=== PATIENT | female | born 1950 | race Caucasian/White ===

== ENCOUNTER → 2017-11-26 | Outpatient (CLI) | payer MEDICARE, OTHER ==
--- NOTE | 2017-11-26 15:58 | Diagnostic Imaging Report ---
EXAM: Bone mineral density study 11/26/2017 1:54 PM INDICATION: \S\MENOPAUSE/LONG TERN USE STEROIDS COMPARISON: Baseline DEXA 07/28/2014 FINDINGS: Evaluation of the left hip and lumbar spine was performed. The study is technically adequate. The patient's fracture risk is compared to an age-matched control. The left femoral neck total bone mineral density is 0.614 gm/cm2, the T-score is -2.1 and the total Z-score is -0.4. The total left hip bone mineral density is 0.718 gm/cm2, the T-score is -1.8 and the total Z-score is -0.5. The total left hip BMD change versus baseline is -7.5%. The lumbar spine total bone mineral density is 0.915 gm/cm2, the T-score is -1.2, and the Z-score is 0.8. The lumbar spine BMD change versus baseline is 0.8%. IMPRESSION: Bone mineralization by WHO Classification is osteopenia, the fracture risk is increased. Signed by: Dr. Isreal Ellis MD on 11/26/2017 3:54 PM
== END ==
LOC: MAMMO 13:38
PROVIDERS: ATTEND Family Medicine
DX: Z12.31 Encounter for screening mammogram for malignant neoplasm of breast (principal); Z13.820 Encounter for screening for osteoporosis; Z78.0 Asymptomatic menopausal state; Z72.0 Tobacco use
CPT/HCPCS: 77067; 77080

== ENCOUNTER → 2017-12-19 | Outpatient (CLI) | payer MEDICARE, OTHER ==
--- NOTE | 2017-12-19 15:41 | Diagnostic Imaging Report ---
#[id number] - MGDXLT #UNILATERAL LEFT DIGITAL DIAGNOSTIC MAMMOGRAM WITH SPOT COMPRESSION AND MAGNIFICATION: 12/19/2017 Comparison is made to exams dated: 11/26/2017 mammogram and 10/17/2016 mammogram - [facility]. Current study contains 3 films. The tissue of the left breast is heterogeneously dense. This may lower the sensitivity of mammography. The calcification in question identified on recent prior study appears to represent benign vascular calcification. IMPRESSION: BENIGN There is no mammographic evidence of malignancy. A 1 year screening mammogram is recommended. The patient will be notified by letter of the results. Abhi Melgar Jr., D.O. cw/:12/19/2017 14:19:43 Caterer Helper: Ting MONTALVO)(M), [facility] letter sent: Normal Exam Mammogram BI-RADS: 2 Benign
== END ==
LOC: MAMMO 12:32
PROVIDERS: ATTEND Family Medicine
DX: N64.59 Other signs and symptoms in breast (principal)

== ENCOUNTER → 2018-02-18 | Outpatient (CLI) | payer MEDICARE, OTHER ==
[~2018-02-18] MED LIST: IOPAMIDOL 370 MG/ML 200 ML INFUS..BTL INJ ONE; SODIUM CHLORIDE 0.9% 250ML 250 ML ONE
[2018-02-18 15:08] LABS: BLOOD UREA NITROGEN 10 mg/dL (7-26); BUN/CREATININE RATIO 14 (6-25); CREATININE, SERUM 0.69 mg/dL (0.57-1.11); EST GLOMERULAR FILTRATION RATE > 60 ML/MIN (60-)
--- NOTE | 2018-02-18 17:03 | Diagnostic Imaging Report ---
EXAMINATION: CT of the abdomen and pelvis with contrast. TECHNIQUE: Spiral CT images of the abdomen and pelvis were performed from the lung bases to the lesser trochanters before and after the intravenous administration of 150 cc of Isovue-370 and the oral administration of water. Coronal and sagittal reformatted images were obtained. CT urogram protocol was performed. COMPARISON: None. CLINICAL HISTORY:Gross hematuria DISCUSSION: ABDOMEN/PELVIS: LOWER THORAX:Unremarkable. HEPATOBILIARY: No focal hepatic lesions. No intra-or extrahepatic biliary ductal dilation. The gallbladder is normal. SPLEEN: No splenomegaly. PANCREAS: No focal masses or ductal dilatation. ADRENALS: No adrenal nodules. KIDNEYS/URETERS: Precontrast images show no renal, ureteral, or bladder calculi. Urographic phase images show subcentimeter hypoattenuating lesions within both kidneys, too small to further characterize though likely to represent small cysts. No solid renal mass lesions. The ureters are fully visualized and opacified with contrast material, without intraluminal filling defect. PELVIC ORGANS/BLADDER: Within the left posterior urinary bladder there is a polypoid lesion measuring 2.8 cm protruding into the bladder lumen, as seen on series 6 image 134. The lesion appears to arise from the bladder wall along its superior margin as seen on coronal image 66. The lesion measures approximately 30 Hounsfield units on precontrast images and approximately 75 Hounsfield units on urographic phase imaging. The uterus is anteflexed and appears normal. No adnexal mass. PERITONEUM/RETROPERITONEUM: No ascites. No pneumoperitoneum. LYMPH NODES: No pelvic sidewall, retroperitoneal, or mesenteric lymphadenopathy. VESSELS: Limited evaluation due to phase of scan. Atherosclerotic calcification of the abdominal aorta and iliac arterial systems without aneurysmal dilatation. Dilatation of the presacral venous plexus which may relate to left common iliac venous compression by the right common iliac artery, seen on series 6 image 84. GI TRACT: There are diverticula scattered along the sigmoid colon without wall thickening or inflammatory change. The appendix is not identified and has presumably been removed. No small bowel dilatation to suggest obstruction. BONES AND SOFT TISSUE: No osseous destructive lesions. Multilevel degenerative disc changes and facet arthropathy of the lumbar spine. No focal soft tissue abnormalities. 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 Direct visualization with cystoscopy is suggested. No CT findings to suggest regional or distant metastases within the abdomen or pelvis. No filling defects in the upper collecting systems to suggest presence of synchronous neoplasm. Large bowel diverticulosis without evidence of diverticulitis. Incidental note of dilatation of the presacral venous plexus, which may be a consequence of left common iliac venous compression (May Thurner syndrome) in the correct clinical setting. Atherosclerotic vascular disease. Signed by: Dr. Hakeem Waddell M.D. on 02/18/2018 5:00 PM
== END ==
LOC: CT 14:06
PROVIDERS: ATTEND Urology
DX: R31.0 Gross hematuria (principal)
CPT/HCPCS: 36415; 74178; 82565; 84520; J7050; Q9967

== ENCOUNTER → 2019-02-03 | Outpatient (CLI) | payer MEDICARE, OTHER ==
--- NOTE | 2019-02-05 08:43 | Diagnostic Imaging Report ---
#[id number] - MGSCRBIL #BILATERAL DIGITAL SCREENING MAMMOGRAM WITH CAD: 02/03/2019 CLINICAL: Routine screening. Comparison is made to exams dated: 12/19/2017 mammogram, 11/26/2017 mammogram, 10/17/2016 mammogram and 09/15/2015 mammogram - [facility]. Current study contains 5 films. There are scattered fibroglandular elements in both breasts. Current study was also evaluated with a Computer Aided Detection (CAD) system. Benign appearing calcifications are noted bilaterally. There are benign vascular calcifications in both breasts. No significant masses, calcifications, or other findings are seen in either breast. IMPRESSION: BENIGN There is no mammographic evidence of malignancy. A 1 year screening mammogram is recommended. The patient will be notified by letter of the results. KAYCEE FOSTER M.D. ct/penrad:02/04/2019 16:45:54 Breaker Unit Assembler: Ting SCHERER(Vaughn)(To), [facility] letter sent: Normal Exam Mammogram BI-RADS: 2 Benign
== END ==
LOC: MAMMO 14:05
PROVIDERS: ATTEND Family Medicine
DX: Z12.31 Encounter for screening mammogram for malignant neoplasm of breast (principal)
CPT/HCPCS: 77067

== ENCOUNTER → 2020-11-17 | Outpatient (CLI) | payer MEDICARE | LOC: MAMMO 14:03 | PROVIDERS: ATTEND Family Medicine | DX: Z12.31 Encounter for screening mammogram for malignant neoplasm of breast (principal); Z87.891 Personal history of nicotine dependence | CPT/HCPCS: 71046; 77067 ==

== ENCOUNTER → 2021-12-19 | Outpatient (CLI) | payer MEDICARE | LOC: MAMMO 12:37 | PROVIDERS: ATTEND Family Medicine | DX: Z12.31 Encounter for screening mammogram for malignant neoplasm of breast (principal) | CPT/HCPCS: 77067 ==

== ENCOUNTER → 2024-03-06 | Outpatient (REF) | payer MEDICARE ==
[~2024-03-06] MED LIST changes: +CEFDINIR300 MG PO; -IOPAMIDOL 370 MG/ML 200 ML INFUS..BTL INJ ONE; -SODIUM CHLORIDE 0.9% 250ML 250 ML ONE; +ULTRAM 50MG50 MG PO
== END ==
LOC: MAMMO 15:27
PROVIDERS: ATTEND Family Medicine
DX: Z12.31 Encounter for screening mammogram for malignant neoplasm of breast (principal)
CPT/HCPCS: 77067

== ENCOUNTER → 2024-08-15 | Outpatient (REF) | payer MEDICARE | LOC: US 07:28 | PROVIDERS: ATTEND Family Medicine | DX: R19.00 Intra-abdominal and pelvic swelling, mass and lump, unspecified site (principal); F17.200 Nicotine dependence, unspecified, uncomplicated | CPT/HCPCS: 71250; 76700 ==